=== PATIENT | male | born 1950 | race Caucasian/White ===

== ENCOUNTER 2023-02-11 08:00 | Outpatient (CLI) | payer MEDICARE ==
--- NOTE | 2023-02-11 17:44 | XRAY Report ---
PROCEDURE: Lumbar Spine 2 View INDICATIONS: RIGHT LUMBAR RADICULOPATHY TECHNIQUE: 2 views of the lumbar spine were acquired. COMPARISON: None. FINDINGS: Bones: 5 [id number] vertebrae are present. Possible left convexity curvature thoracolumbar spi ne partially imaged versus artifact related to positioning. Mild-moderate multilevel degenerative estella nges with disc height loss, endplate spurring, and facet arthropathy. No lumbar vertebral body compre ssion fracture identified. Soft tissues: Overlying bowel gas pattern is normal. Vascular calcifications are present. IMPRESSION: Multilevel degenerative changes of the lumbar spine. Reviewed by: Tyrone Jreez MD on 02/11/2023 5:43 PM PDT Approved by: Tyrone Jerez MD on 02/11/2023 5:43 PM PDT Station ID: [id number]
== END 2023-02-11 23:59 | disposition home or self-care (01) ==
LOC: DI.S 08:00
PROVIDERS: ATTEND Physician Assistant
DX: M47.816 Spondylosis without myelopathy or radiculopathy, lumbar region (principal)